=== PATIENT | male | born 1940 | race Caucasian/White ===

== ENCOUNTER 2017-02-12 11:09 | Inpatient (IN) | payer OTHER ==
[~2017-02-12] VITALS: Ht 170.2 cm; Wt 86.9 kg
[~2017-02-12 11:09] MED LIST: ADVIL LIQUI-GE200 MG PO; AMLODIPINE BESY10 MG PO; ASPIR 8181 M1 PO; ASPIR-LOW81 MG PO; ATORVASTATIN CA20 MG PO; BICALUTAMIDE50 MG PO; CANASA1000 MG PR; CLEOCIN300 MG PO; CLOPIDOGREL75 MG PO; FINASTERIDE5 MG PO; FLOMAX0.4 MG PO; FLONASE16 G1 BOTH NARES; GABAPENTIN300 MG PO; IMDUR30 MG PO; IRON325 MG PO; KENALOG,ARISTOC80 GM TP; LANTUS 3 M100 UNITS1 SQ; LEVEMIR100 UNIT/2 SC; LISINOPRIL20 MG PO; LO-DOSE ASPIRIN81 M2 PO; LOMOTIL TABLET1 EACH PO; LORATADINE10 M2 PO; MEDROL DOSEPAK4 MG PO; MELATONIN5 M1 PO; MELOXICAM15 MG PO; METOPROLOL SUC100 MG PO; MUCINEX600 MG PO; NEURONTIN300 MG PO; NIFEDIPINE ER30 MG PO; NITROSTAT0.4 MG SL; NOVOLOG 10100 UNITS/ SC; OMEPRAZOLE20 MG PO; OMEPRAZOLE40 M1 PO; PREDNISONE5 MG PO; PROCARDIA XL30 MG PO; PROSTEON TABLE1 EACH PO; SLEEP AID50 MG PO; TRAMADOL HCL50 MG PO; ULTRAM50 MG PO; XELODA500 MG PO; ZYRTEC10 M2 PO; ZYTIGA250 MG PO; [UNRECOGNIZED DRUG - REMARK] PO
[2017-02-12 13:12] LABS: CHLORIDE 99 mEq/L (99-109); POTASSIUM 4.7 mEq/L (3.7-5.4); SODIUM 130 mEq/L (136-147)
[2017-02-12 13:14] LABS: GLUCOSE 128 mg/dL (70-99)
[2017-02-12 13:15] LABS: ANION GAP 12 MEQ/L (2-14)
[2017-02-12 13:17] LABS: GFR ESTIMATE (CALCULATED) > 59 mL/min/
[2017-02-12 13:18] LABS: UREA NITROGEN (BUN) 29 mg/dL (9-23)
[2017-02-12 13:32] LABS: HEMATOCRIT 30.6 % (38.0-50.0); MCV 96.8 FL (86-99); MEAN PLAT.VOLUME 12.5 uM^3 (9.0-12.4); PLATELET COUNT 142 K/uL (156-360); RBC DIS.WIDTH-CV 15.8 % (11.8-14.6); RED BLOOD COUNT 3.16 M/uL (4.00-5.50); WHITE BLOOD COUNT 1.1 K/uL (4.1-10.2)
[2017-02-12 13:50] LABS: TOTAL BILIRUBIN 0.6 mg/dL (0.0-1.0)
[2017-02-12 13:51] LABS: ALKALINE PHOSPHATASE 206 IU/L (3-129)
[2017-02-12 13:54] LABS: DIRECT BILIRUBIN 0.4 mg/dL (0.0-0.3)
[2017-02-12 14:22] LABS: INTER. NORMALIZED RATIO 1.1; PROTHROMBIN TIME 11.5 (9.2-11.2)
[2017-02-12 14:32] LABS: LIPASE 2 U/L (1.0-51.0)
[2017-02-12] MEDS ORDERED: OMEPRAZOLE40 M1 PO (17:10)
[2017-02-12] MEDS ORDERED: ISOSORBIDE MONO30 MG PO (17:10)
[2017-02-12] MEDS ORDERED: LEVEMIR100 UNIT/2 SC (17:11)
[2017-02-12] MEDS ORDERED: MORPHINE SULFAT30 M2 PO (17:11)
[2017-02-12] MEDS ORDERED: NOVOLOG 10100 UNITS/ SC (17:11)
[2017-02-12] MEDS ORDERED: CALCIUM 600 +1 EAC2 PO (17:11)
[2017-02-12] MEDS ORDERED: LASIX40 MG PO (17:12)
[2017-02-12] MEDS ORDERED: BUMETANIDE2 MG PO (17:12)
[2017-02-12] MEDS ORDERED: AMBIEN CR6.25 MG PO (17:12)
[2017-02-12] MEDS ORDERED: IMODIUM A-D2 M2 PO (17:12)
[2017-02-12] MEDS ORDERED: RANITIDINE HCL150 MG PO (17:13)
[2017-02-12] MEDS ORDERED: DEXAMETHASONE4 MG PO (17:13)
[2017-02-12 21:00] VITALS: BP 130/62
[2017-02-12 23:57] VITALS: BP 136/65
[2017-02-13 03:31] VITALS: BP 146/66
[2017-02-13 07:24] LABS: ALKALINE PHOSPHATASE 151 IU/L (3-129); ANION GAP 9 MEQ/L (2-14); CHLORIDE 102 MEQ/L (99-109); GFR ESTIMATE (CALCULATED) > 59 mL/min/; GLUCOSE 110 mg/dL (70-99); POTASSIUM 4.5 MEQ/L (3.7-5.4); SAMPLE HEMOLYSIS CHECK 0; SAMPLE ICTERIC CHECK 0; SAMPLE LIPEMIA CHECK 0; SODIUM 130 MEQ/L (136-147); TOTAL BILIRUBIN 0.5 MG/DL (0.0-1.0); UREA NITROGEN (BUN) 16 mg/dL (9-23)
[2017-02-13 07:29] LABS: HEMATOCRIT 24.6 % (38.0-50.0); MCH 31.9 PG (29.0-34.0); MCHC 32.9 G/DL (30.0-36.0); MCV 96.9 FL (86-99); MEAN PLAT.VOLUME 13.3 uM^3 (9.0-12.4); NRBC (%) 1.7 /100 WBC (0-0); PLATELET COUNT 120 K/uL (156-360); RBC DIS.WIDTH-CV 16.2 % (11.8-14.6); RBC DIS.WIDTH-SD 57.5 % (39-53); RED BLOOD COUNT 2.54 M/uL (4.00-5.50)
[2017-02-13 07:43] VITALS: BP 150/67
[2017-02-13 07:44] LABS: WHITE BLOOD COUNT 2.4 K/uL (4.1-10.2)
[2017-02-13 08:07] LABS: ABS NEUTROPHIL COUNT 0.9; ANISOCYTOSIS 1+; BAND NEUTROPHILS 10.9 % (0-8.0); EOSINOPHIL ABS CT 0; HYPOCHROMASIA 1+; INSTRUMENT ABS NEUTROPHIL CT 1.1 K/uL; LYMPHOCYTES 35.6 % (15.0-45.0); PLAT.SUFFICIENCY DECREASED; POIKILOCYTOSIS 2+; SEG.NEUTROPHILS 27.7 % (46.0-76.0); SMUDGE CELLS 16.8
[2017-02-13 12:23] LABS: POINT-OF-CARE METER ID UU13113698
[2017-02-13 15:17] VITALS: BP 146/66
[2017-02-13 19:39] LABS: C DIFF TOXIN NEGATIVE (NEGATIVE)
[2017-02-13 19:50] VITALS: BP 158/69
[2017-02-13 20:07] LABS: ADD MIUA? NO; BILIRUBIN NEGATIVE; BLOOD NEGATIVE; COLOR YELLOW ((YELLOW)); GLUCOSE (STRIP) NEGATIVE; KETONES NEGATIVE; LEUKOCYTES NEGATIVE; NITRITE NEGATIVE; PROTEIN (STRIP) NEGATIVE; SPECIFIC GRAVITY 1.011 (1.000-1.030); UROBILINOGEN 0.2 MG/DL (0.2-1.0)
[2017-02-13 20:37] LABS: PROBE CHECK PASS; SPECIMEN PROCESSING CONTROL PASS
[2017-02-13 20:53] LABS: POINT-OF-CARE METER ID UU14174216
[2017-02-14 00:15] VITALS: BP 176/76
[2017-02-14 04:50] VITALS: BP 162/70
[2017-02-14 08:56] VITALS: BP 157/69
[2017-02-14 09:20] LABS: HEMATOCRIT 28.7 % (38.0-50.0); MCHC 32.1 G/DL (30.0-36.0); MCV 96.6 FL (86-99); MEAN PLAT.VOLUME 12.9 uM^3 (9.0-12.4); NRBC (%) 1.8 /100 WBC (0-0); PLATELET COUNT 115 K/uL (156-360); RBC DIS.WIDTH-CV 16.7 % (11.8-14.6); RBC DIS.WIDTH-SD 58.8 % (39-53); RED BLOOD COUNT 2.97 M/uL (4.00-5.50)
[2017-02-14 09:23] LABS: WHITE BLOOD COUNT 12.6 K/uL (4.1-10.2)
[2017-02-14 10:07] LABS: CHLORIDE 105 mEq/L (99-109); POTASSIUM 4.7 mEq/L (3.7-5.4); SODIUM 131 mEq/L (136-147)
[2017-02-14 10:09] LABS: GLUCOSE 100 mg/dL (70-99)
[2017-02-14 10:11] LABS: ANION GAP 11 MEQ/L (2-14)
[2017-02-14 10:13] LABS: GFR ESTIMATE (CALCULATED) > 59 mL/min/
[2017-02-14 10:14] LABS: UREA NITROGEN (BUN) 9 mg/dL (9-23)
== END 2017-02-14 13:57 | disposition home or self-care (01) | DRG 809 ==
LOC: EME 11:09 → 4EAST 18:28 → EDOF 18:28 → 4EAST 20:32
PROVIDERS: Family Medicine Sports Medicine; Nurse Practitioner Family
DX: D70.1 Agranulocytosis secondary to cancer chemotherapy (principal); R50.81 Fever presenting with conditions classified elsewhere; K52.9 Noninfective gastroenteritis and colitis, unspecified; T45.1X5A Adverse effect of antineoplastic and immunosuppressive drugs, initial encounter; E87.1 Hypo-osmolality and hyponatremia; E86.0 Dehydration; E11.65 Type 2 diabetes mellitus with hyperglycemia; C61 Malignant neoplasm of prostate; C79.9 Secondary malignant neoplasm of unspecified site; I25.10 Atherosclerotic heart disease of native coronary artery without angina pectoris; I10 Essential (primary) hypertension; E78.5 Hyperlipidemia, unspecified; K21.9 Gastro-esophageal reflux disease without esophagitis; F32.9 Major depressive disorder, single episode, unspecified; G89.29 Other chronic pain; D64.9 Anemia, unspecified; M54.5 Low back pain; Z87.891 Personal history of nicotine dependence; Z86.73 Personal history of transient ischemic attack (TIA), and cerebral infarction without residual deficits; Z85.07 Personal history of malignant neoplasm of pancreas; Z79.02 Long term (current) use of antithrombotics/antiplatelets; Z79.4 Long term (current) use of insulin
CPT/HCPCS: 71020; 80048; 80053; 80076; 80202; 81003; 82948; 83605; 83690; 85025; 85027; 85610; 85730; 86850; 86900; 86901; 87040; 87070; 87205; 87493; 87801; 99281; 99285; J0692; J1650; J1815; J3370; J7030; J7050; J7120; J7512